=== PATIENT | female | born 1980 ===

== ENCOUNTER 2020-05-30 11:45 | Outpatient (CLI) | payer OTHER | END 2020-05-30 12:01 | disposition home or self-care (01) | LOC: LAB 11:45 | PROVIDERS: ATTEND Obstetrics & Gynecology Gynecologic Oncology | DX: D64.89 Other specified anemias (principal); Z01.818 Encounter for other preprocedural examination; R10.2 Pelvic and perineal pain; N39.0 Urinary tract infection, site not specified; R97.1 Elevated cancer antigen 125 [CA 125]; B34.2 Coronavirus infection, unspecified; D25.9 Leiomyoma of uterus, unspecified; Z01.811 Encounter for preprocedural respiratory examination; Z01.810 Encounter for preprocedural cardiovascular examination; Z20.828 Contact with and (suspected) exposure to other viral communicable diseases; Z01.812 Encounter for preprocedural laboratory examination ==